=== PATIENT | female | born 1990 | race Caucasian/White ===

== ENCOUNTER 2020-03-03 09:55 | Inpatient (IN) | payer MEDICAID, OTHER ==
[~2020-03-03] VITALS: Ht 154.9 cm; Wt 72.6 kg
[2020-03-03] MEDS ORDERED: MISOPROSTOL 100MCG TABLET VG SCH (10:45)
[2020-03-03] MEDS ORDERED: CARBOPROST TROMETHAMINE 250 MCG/ML AMPUL IM PRN (10:45)
[2020-03-03] MEDS ORDERED: BUTORPHANOL TARTRATE 2 MG/ML VIAL IV PRN (10:45)
[2020-03-03] MEDS ORDERED: LACTATED RINGERS 1,000 ML IV SCH (10:45)
[2020-03-03] MEDS ORDERED: DEXT 5%/LR + PITOCIN 20UNITS/L 1,000 ML IV SCH ×2 (10:45→16:45)
[2020-03-03] MEDS ORDERED: METHYLERGONOVINE MALEATE 0.2 MG/ML IM PRN (10:45)
[2020-03-03] MEDS ORDERED: NALOXONE HCL 0.4 MG/ML 1ML VIAL IM PRN (10:45)
[2020-03-03] MEDS ORDERED: LIDOCAINE HCL 1% 20ML VIAL (Pyxis) INJ INFIL SCH (10:45)
[2020-03-03] MEDS ORDERED: AMPICILLIN 2GM in NS 100ML 100 ML IV NR (11:00)
[2020-03-03 11:20] LABS: BASOPHILS % 0.5 % (0.0-2.0); EOSINOPHILS % 0.6 % (0.0-5.0); HEMATOCRIT. 41.6 % (36.0-48.0); HEMOGLOBIN. 13.6 g/dL (12.0-16.0); LYMPHOCYTES % 15.6 % (20.0-50.0); MEAN CORPUSCULAR HEMOGLOBIN 26.8 pg (28.0-32.0); MEAN CORPUSCULAR VOLUME 81.8 fL (81.0-99.0); MEAN PLATELET VOLUME 7.2 fl (7.4-10.4); MONOCYTES % 5.3 % (2.0-8.0); PLATELET 405 x1000/uL (130-400); RED BLOOD CELL COUNT 5.09 mill/uL (4.2-5.4)
[2020-03-03 11:21] LABS: CLARITY URINE CLOUDY (CLEAR); COLOR URINE YELLOW (YELLOW); KETONES URINE NEGATIVE (NEGATIVE); LEUKOCYTE ESTERASE URINE 2+ (NEGATIVE); NITRITE URINE NEGATIVE (NEGATIVE); OCCULT BLOOD URINE 2+ (NEGATIVE); PROTEIN URINE 1+ (NEGATIVE); SPECIFIC GRAVITY URINE 1.019 (1.005-1.030)
[2020-03-03 11:36] LABS: INR 0.9; PROTHROMBIN TIME 9.9 sec (9.6-11.0)
[2020-03-03] MEDS ORDERED: ROPIVACAINE HCL/PF EPIDURAL 200 ML EP SCH (12:00)
[2020-03-03 12:03] LABS: *AMPHETAMINES SCREEN URINE NEGATIVE (NEGATIVE); *BARBITURATES SCREEN URINE NEGATIVE (NEGATIVE); *BENZODIAZEPINES SCREEN URINE NEGATIVE (NEGATIVE); *COCAINE SCREEN URINE NEGATIVE (NEGATIVE)
[2020-03-03 12:04] LABS: METHADONE URINE SCREEN NEGATIVE (NEGATIVE); OPIATES URINE SCREEN NEGATIVE (NEGATIVE)
[2020-03-03 12:05] LABS: CANNABINOID URINE SCREEN NEGATIVE (NEGATIVE); PHENCYCLIDINE URINE SCREEN NEGATIVE (NEGATIVE)
[2020-03-03 12:30] LABS: PLATELET ESTIMATE SLIGHTLY INCREASED
[2020-03-03 12:53] LABS: HEPATITIS B SURFACE ANTIGEN NEGATIVE
[2020-03-03] MEDS ORDERED: IBUPROFEN 400MG TABLET PO PRN (16:45)
[2020-03-03] MEDS ORDERED: RHO(D) IMMUNE GLOBULIN 300 MCG/SYR IM PRN (16:45)
[2020-03-03] MEDS ORDERED: BENZOCAINE/LANOLIN/ALOE VERA SPRAY TOP PRN (16:45)
[2020-03-03] MEDS ORDERED: AMPICILLIN 1,000 MG in SODIUM CHLORIDE 0.9% 50 ML IV SCH (17:00)
[2020-03-03 17:55] VITALS: BP 124/88
[2020-03-03 18:25] VITALS: BP 126/82
[2020-03-03] MEDS: IBUPROFEN 800MG TABLET PO PRN (18:55)
[2020-03-03 20:00] VITALS: BP 128/80
[2020-03-03 22:30] VITALS: BP 134/79
[2020-03-04 03:40] VITALS: BP 136/79
[2020-03-04 07:30] VITALS: BP 132/81
[2020-03-04 07:32] LABS: BASOPHILS % 0.6 % (0.0-2.0); HEMATOCRIT. 35.3 % (36.0-48.0); HEMOGLOBIN. 11.8 g/dL (12.0-16.0); LYMPHOCYTES % 15.2 % (20.0-50.0); MEAN CORPUSCULAR HEMOGLOBIN 27.4 pg (28.0-32.0); MEAN CORPUSCULAR VOLUME 81.6 fL (81.0-99.0); MEAN PLATELET VOLUME 7.1 fl (7.4-10.4); MONOCYTES % 5.9 % (2.0-8.0); NEUTROPHILS % 77.3 % (40.0-76.0); PLATELET 338 x1000/uL (130-400); RED BLOOD CELL COUNT 4.32 mill/uL (4.2-5.4); RED CELL DISTRIBUTION WIDTH 22.8 % (11.6-14.6)
[2020-03-04 17:00] VITALS: BP 134/70
[2020-03-04] MEDS: IBUPROFEN 800MG TABLET PO PRN (19:25)
[2020-03-04 20:00] VITALS: BP 129/63
[2020-03-05 05:05] VITALS: BP 130/89
[2020-03-05 08:00] VITALS: BP 134/78
[2020-03-05] MEDS ORDERED: METRONIDAZOLE 500MG TABLET PO SCH (09:00)
[2020-03-05] MEDS ORDERED: LACTATED RINGERS 1,000 ML IV SCH (09:45)
[2020-03-05] MEDS ORDERED: MEDROXYPROGESTERONE ACETATE 150MG/ML VIAL IM SCH (10:00)
[2020-03-05] MEDS ORDERED: CEFAZOLIN SODIUM 1000MG/VIAL ONE (11:39)
[2020-03-05] MEDS ORDERED: EPHEDRINE SULFATE 50MG/ML VIAL ONE (11:39)
[2020-03-05] MEDS ORDERED: SODIUM CHLORIDE 0.9% 10ML VIAL ONE (11:40)
[2020-03-05] MEDS ORDERED: DIPHENHYDRAMINE 50MG/ML VIAL IV PRN (12:00)
[2020-03-05] MEDS ORDERED: MEPERIDINE HCL/PF 25MG/ML CPJ IV PRN (12:00)
[2020-03-05] MEDS ORDERED: ACETAMINOPHEN WITH CODEINE 300/30MG TABLET PO PRN (12:00)
[2020-03-05] MEDS ORDERED: METOCLOPRAMIDE HCL 10MG/2ML VIAL IV ONE (12:00)
[2020-03-05] MEDS ORDERED: IBUP-2030 PO (12:38)
[2020-03-05] MEDS: HYDROMORPHONE HCL/PF 2MG/ML CPJ IV PRN ×2 (13:45→14:39)
[2020-03-05] MEDS ORDERED: KETOROLAC 30MG/ML VIAL IV SCH (14:00)
[2020-03-05 16:04] VITALS: BP 152/87
[2020-03-05 16:35] VITALS: BP 140/90
== END 2020-03-05 17:10 | disposition home or self-care (01) | DRG 541 ==
LOC: OBSVTOIN 09:55 → 8 EST LDRP 09:55 → 8EST 17:26 → 8 EST LDRP 03-05 09:30 → 8EST 03-05 15:42
PROVIDERS: ADMIT Obstetrics & Gynecology; ATTEND Obstetrics & Gynecology
PROC: 10E0XZZ Delivery of Products of Conception, External Approach (ICD-10-PCS; principal; 2020-03-03)
PROC: 0W8NXZZ Division of Female Perineum, External Approach (ICD-10-PCS; 2020-03-03)
PROC: 10D07Z6 Extraction of Products of Conception, Vacuum, Via Natural or Artificial Opening (ICD-10-PCS; 2020-03-03)
PROC: 0UB70ZZ Excision of Bilateral Fallopian Tubes, Open Approach (ICD-10-PCS; 2020-03-05)
DX: O69.1XX0 Labor and delivery complicated by cord around neck, with compression, not applicable or unspecified (principal); O99.12 Other diseases of the blood and blood-forming organs and certain disorders involving the immune mechanism complicating childbirth; Z3A.38 38 weeks gestation of pregnancy; Z37.0 Single live birth; Z30.2 Encounter for sterilization; Z20.822 Contact with and (suspected) exposure to COVID-19; O77.0 Labor and delivery complicated by meconium in amniotic fluid; A59.00 Urogenital trichomoniasis, unspecified
CPT/HCPCS: 36415; 80305; 81003; 85025; 86592; 86593; 86703; 86762; 86780; 86850; 86900; 87340; 88302; 99281; G0378; J0290; J0595; J0690; J1050; J1170; J1885; J2210; J2590; J2795; J3490; J7120; U0003; A4315

== ENCOUNTER 2021-07-13 09:09 | Emergency (ER) | payer OTHER ==
[~2021-07-13] VITALS: Ht 154.9 cm; Wt 73.0 kg
[~2021-07-13 09:09] MED LIST: IBUP-2030 PO
[2021-07-13 09:17] VITALS: BP 123/105
[2021-07-13] MEDS ORDERED: ONDANSETRON HCL 4MG/2ML INJ IV STA (09:43)
[2021-07-13] MEDS ORDERED: BENZONATATE 200MG CAPSULE PO ONE (09:45)
[2021-07-13] MEDS ORDERED: SODIUM CHLORIDE 0.9% 1,000 ML IV ONE (09:45)
[2021-07-13 10:09] LABS: BASOPHILS % 0.7 % (0.0-2.0); EOSINOPHILS % 0.5 % (0.0-5.0); HEMATOCRIT. 36.9 % (36.0-48.0); HEMOGLOBIN. 11.7 g/dL (12.0-16.0); LYMPHOCYTES % 15.2 % (20.0-50.0); MEAN CORPUSCULAR VOLUME 78.7 fL (81.0-99.0); MEAN PLATELET VOLUME 7.4 fl (7.4-10.4); MONOCYTES % 9.4 % (2.0-8.0); NEUTROPHILS % 74.2 % (40.0-76.0); PLATELET 404 x1000/uL (130-400); RED BLOOD CELL COUNT 4.69 mill/uL (4.2-5.4); RED CELL DISTRIBUTION WIDTH 18.3 % (11.6-14.6)
[2021-07-13 10:21] LABS: CHLORIDE 103 mEq/L (98-107)
[2021-07-13 10:32] LABS: HCG SCREEN NEGATIVE
[2021-07-13] MEDS ORDERED: AMOX-494 MT (12:45)
[2021-07-13] MEDS ORDERED: BENZ-16 MT (12:45)
[2021-07-13] MEDS ORDERED: ONDA4TAB5 MT (12:52)
[2021-07-13] MEDS ORDERED: AMOXICILLIN 500 MG CAPSULE PO ONE (13:00)
== END 2021-07-13 13:20 | disposition home or self-care (01) ==
LOC: ER 09:09
DX: J18.9 Pneumonia, unspecified organism (principal); I50.9 Heart failure, unspecified; Z20.822 Contact with and (suspected) exposure to COVID-19
CPT/HCPCS: 36415; 71045; 80053; 83880; 84703; 85025; 87426; 96361; 96374; 99284; J2405; J7030